=== PATIENT | male | born 1940 | race Caucasian/White ===

== ENCOUNTER 2017-09-27 23:36 | Inpatient (IN) | payer MEDICARE, MEDICAID ==
[~2017-09-27] VITALS: Ht 165.1 cm; Wt 86.4 kg
[~2017-09-27 23:36] MED LIST: ALBU8HFA PO; ASPI-1264 PO; ATOR10TA PO; FAMO20TA8 PO; LISI-222 PO; MAGN400C PO; MELO-102 PO; MONT10TA21 PO; NITR0.4T51 SL; OMEG1CAP PO
[2017-09-27] MEDS ORDERED: normal saline 1000ML IV soln IVB ONE (23:55)
[2017-09-28 00:31] LABS: CLARITY,URINE Clear (Clear); COLOR,URINE Yellow (Yellow); GLUCOSE, URINE Negative (Neg); KETONES,URINE Negative (Neg); LEUKOCYTE ESTERASE ,URINE Moderate (Neg); NITRITES, URINE Negative (Neg); OCCULT BLOOD,URINE Trace (Neg); PH,URINE 6.5 (4.8-8.0); PROTEIN,URINE Negative (Neg)
[2017-09-28 00:32] LABS: UA COLLECTION TYPE STRAIGHT CATH
[2017-09-28 00:35] LABS: BASOPHILS % (AUTO) 0.6 % (0-1); EOSINOPHILS % (AUTO) 0.3 % (0-6); HEMATOCRIT 42.2 % (42.0-52.0); LYMPHOCYTES # (AUTO) 1.3 X10'3 (1.1-4.8); LYMPHOCYTES % (AUTO) 16.6 % (21-51); MEAN CORPUSCULAR HEMOGLOBIN 30.1 PG (27.0-31.0); MEAN CORPUSCULAR HGB CONC 33.2 % (33.0-36.5); MEAN CORPUSCULAR VOLUME 90.7 FL (78-98); MEAN PLATELET VOLUME 8.9 FL (7.4-10.4); MONOCYTES # (AUTO) 0.5 X10'3 (0-0.9); MONOCYTES % (AUTO) 6.2 % (2-12); NEUTROPHILS # (AUTO) 5.9 X10'3 (1.8-7.7); NEUTROPHILS % (AUTO) 76.3 % (42-75); PLATELET COUNT 214 X10'3 (140-440); RED BLOOD COUNT 4.65 X10'6 (4.70-6.10); RED CELL DISTRIBUTION WIDTH 15.1 % (11.5-14.5); WHITE BLOOD COUNT 7.8 X10'3 (4.5-11.0)
[2017-09-28 00:40] LABS: BACTERIA,URINE 3+ /HPF (Neg); MUCUS STRANDS NONE SEEN /LPF (Neg); RBC,URINE 0-2 /HPF (0-2); SQUAMOUS EPITHELIAL CELL,UR NONE SEEN /LPF (FEW); WBC,URINE 30-50 /HPF (0-4)
[2017-09-28 00:48] LABS: ALANINE AMINOTRANSFERASE 25 U/L (12-78); ALBUMIN 3.3 G/DL (3.4-5.0); ALBUMIN/GLOBULIN RATIO 0.8 (1.1-1.5); ALKALINE PHOSPHATASE 85 IU/L (46-116); ANION GAP 11 (8-16); ASPARTATE AMINO TRANSFERASE 23 U/L (10-37); BILIRUBIN,TOTAL 0.3 MG/DL (0.1-1.0); BLOOD UREA NITROGEN 25 MG/DL (7-18); BUN/CREATININE RATIO 21.2 (5.4-32.0); CALCIUM 9.1 MG/DL (8.5-10.1); CHLORIDE 104 MMOL/L (99-107); CREATININE 1.18 MG/DL (0.60-1.10); GLUCOSE 88 MG/DL (70-104); POTASSIUM 4.2 MMOL/L (3.5-5.1); SODIUM 142 MMOL/L (135-145); TOTAL CARBON DIOXIDE 27.5 MMOL/L (24-32); TOTAL PROTEIN 7.7 G/DL (6.4-8.2); eGFR 60 ML/MIN
[2017-09-28] MEDS ORDERED: CefTRIAXone 2gm/NS 100ml IVPB 100 ML IV ONE (01:00)
[2017-09-28] MEDS ORDERED: CEPH500C5 PO (01:02)
[2017-09-28] MEDS ORDERED: FLO0.4C PO (02:05)
[2017-09-28] MEDS ORDERED: diphenhydrAMINE 25mg capsule PO PRN (02:15)
[2017-09-28] MEDS ORDERED: ondansetron/PF 4mg/2ml inj IV PRN (02:15)
[2017-09-28] MEDS ORDERED: acetaminophen 325mg tablet PO PRN (02:15)
[2017-09-28] MEDS ORDERED: acetaminophen 650mg rectal suppository RC PRN (02:15)
[2017-09-28] MEDS ORDERED: bisacodyl 10mg suppository rectal RC PRN (02:15)
[2017-09-28] MEDS ORDERED: magnesium hydroxide 30ml (MOM) UD suspension PO PRN (02:15)
[2017-09-28] MEDS ORDERED: diphenhydrAMINE 50 mg/ml inj IV PRN (02:15)
[2017-09-28] MEDS ORDERED: HYDROmorphone 1 mg/ml syringe IV PRN ×2 (02:15)
[2017-09-28] MEDS ORDERED: mag hydrox/Alum hydrox/simeth 30ml oral suspension PO PRN (02:15)
[2017-09-28] MEDS ORDERED: HYDROcodone/acetaminophen 5mg/325mg tablet PO PRN (02:15)
[2017-09-28] MEDS ORDERED: HYDROcodone/acetaminophen 10/325mg tab PO PRN (02:15)
[2017-09-28] MEDS ORDERED: metoclopramide 5 mg/ml inj IV PRN (02:15)
[2017-09-28 02:53] LABS: PARTIAL THROMBOPLASTIN TIME 23 SECONDS (22-32); PROTHROMBIN TIME 10.5 SECONDS (9.0-12.0)
[2017-09-28] MEDS: normal saline 1000ml 1,000 ML IV SCH ×3 (02:55→22:11)
[2017-09-28] MEDS ORDERED: magnesium 2GM in 50ml NS 50 ML IV PRN (03:05)
[2017-09-28] MEDS ORDERED: magnesium 4gm in 100ml NS 100 ML IV PRN (03:05)
[2017-09-28] MEDS ORDERED: magnesium Cl slow-release 64mg tablet PO PRN (03:05)
[2017-09-28 06:44] LABS: PHOSPHORUS 3.6 MG/DL (2.3-4.5)
[2017-09-28] MEDS ORDERED: aspirin 81mg tab.chew PO SCH (08:30)
[2017-09-28] MEDS: aspirin 325mg tablet PO SCH (08:36)
[2017-09-28] MEDS: atorvastatin 20mg tablet PO SCH (08:36)
[2017-09-28] MEDS: docusate sod 100mg capsule PO SCH ×2 (08:36→20:54)
[2017-09-28] MEDS: tamsulosin 0.4mg capsule PO SCH (08:36)
[2017-09-28] MEDS: heparin, porcine 5000 units/ml vial SQ SCH ×2 (08:37→20:48)
[2017-09-28] MEDS: cefTRIAXone 1g/NS 100ml IVPB 100 ML IV SCH ×2 (08:37→20:48)
[2017-09-28 10:00] VITALS: BP 144/51
[2017-09-28 16:22] LABS: CHOL/HDL RATIO 2.8 (0.00-4.99); CHOLESTEROL 133 MG/DL (0-200); HDL CHOLESTEROL 47 MG/DL (35-60); LDL CHOLESTEROL 75 MG/DL (50-100); TRIGLYCERIDES 127 MG/DL (20-135)
[2017-09-28] MEDS: lactobacillus rhamnosus 10,000 MMU CELLS/CAPSULE PO SCH (17:48)
[2017-09-28 19:00] VITALS: BP 105/67
[2017-09-28] MEDS ORDERED: temazepam 15mg capsule PO PRN (21:00)
[2017-09-28 22:00] VITALS: BP 142/72
[2017-09-29 00:32] VITALS: BP 118/71
[2017-09-29] MEDS ORDERED: atropine 1 MG/1 ML vial IV PRN (00:50)
[2017-09-29 04:00] VITALS: BP 123/61
[2017-09-29 06:00] VITALS: BP 145/65
[2017-09-29 07:05] LABS: BASOPHILS % (AUTO) 0.5 % (0-1); EOSINOPHILS # (AUTO) 0.1 X10'3 (0-0.9); EOSINOPHILS % (AUTO) 0.7 % (0-6); HEMATOCRIT 39.1 % (42.0-52.0); LYMPHOCYTES # (AUTO) 1.7 X10'3 (1.1-4.8); LYMPHOCYTES % (AUTO) 23.9 % (21-51); MEAN CORPUSCULAR HEMOGLOBIN 30.3 PG (27.0-31.0); MEAN CORPUSCULAR HGB CONC 33.4 % (33.0-36.5); MEAN CORPUSCULAR VOLUME 90.7 FL (78-98); MONOCYTES # (AUTO) 0.6 X10'3 (0-0.9); MONOCYTES % (AUTO) 8.1 % (2-12); NEUTROPHILS # (AUTO) 4.9 X10'3 (1.8-7.7); NEUTROPHILS % (AUTO) 66.8 % (42-75); PLATELET COUNT 195 X10'3 (140-440); RED BLOOD COUNT 4.31 X10'6 (4.70-6.10); RED CELL DISTRIBUTION WIDTH 15.1 % (11.5-14.5); WHITE BLOOD COUNT 7.3 X10'3 (4.5-11.0)
[2017-09-29 07:36] LABS: ALANINE AMINOTRANSFERASE 19 U/L (12-78); ALBUMIN 2.8 G/DL (3.4-5.0); ALBUMIN/GLOBULIN RATIO 0.7 (1.1-1.5); ALKALINE PHOSPHATASE 63 IU/L (46-116); ANION GAP 9 (8-16); ASPARTATE AMINO TRANSFERASE 17 U/L (10-37); BILIRUBIN,TOTAL 0.5 MG/DL (0.1-1.0); BLOOD UREA NITROGEN 18 MG/DL (7-18); CALCIUM 8.6 MG/DL (8.5-10.1); CHLORIDE 107 MMOL/L (99-107); CREATININE 1.06 MG/DL (0.60-1.10); GLUCOSE 86 MG/DL (70-104); MAGNESIUM 1.5 MG/DL (1.5-2.4); POTASSIUM 3.8 MMOL/L (3.5-5.1); SODIUM 142 MMOL/L (135-145); TOTAL CARBON DIOXIDE 25.8 MMOL/L (24-32); TOTAL PROTEIN 6.6 G/DL (6.4-8.2); eGFR 68 ML/MIN
[2017-09-29] MEDS: cefTRIAXone 1g/NS 100ml IVPB 100 ML IV SCH ×2 (09:37→21:34)
[2017-09-29] MEDS: aspirin 325mg tablet PO SCH (09:37)
[2017-09-29] MEDS: lactobacillus rhamnosus 10,000 MMU CELLS/CAPSULE PO SCH ×2 (09:37→19:47)
[2017-09-29] MEDS: tamsulosin 0.4mg capsule PO SCH (09:38)
[2017-09-29] MEDS: atorvastatin 20mg tablet PO SCH (09:38)
[2017-09-29] MEDS: docusate sod 100mg capsule PO SCH ×2 (09:38→19:48)
[2017-09-29] MEDS: heparin, porcine 5000 units/ml vial SQ SCH ×2 (09:44→19:48)
[2017-09-29] MEDS: normal saline 1000ml 1,000 ML IV SCH ×2 (09:45→19:48)
[2017-09-29 10:00] VITALS: BP 119/62
[2017-09-29 20:00] VITALS: BP 114/64
[2017-09-29] MEDS ORDERED: CefTRIAXone 1 gm/50ml D5W ADV 50 ML IV ONE (21:26)
[2017-09-30] VITALS: BP 122/71
[2017-09-30 04:00] VITALS: BP 109/68
[2017-09-30 06:00] VITALS: BP 133/66
[2017-09-30 06:10] LABS: BASOPHILS # (AUTO) 0.1 X10'3 (0-0.2); BASOPHILS % (AUTO) 0.7 % (0-1); EOSINOPHILS # (AUTO) 0.1 X10'3 (0-0.9); EOSINOPHILS % (AUTO) 1.1 % (0-6); HEMATOCRIT 40.1 % (42.0-52.0); HEMOGLOBIN 13.5 g/dl (14.0-17.9); LYMPHOCYTES # (AUTO) 1.4 X10'3 (1.1-4.8); MEAN CORPUSCULAR HEMOGLOBIN 30.4 PG (27.0-31.0); MEAN CORPUSCULAR HGB CONC 33.5 % (33.0-36.5); MEAN CORPUSCULAR VOLUME 90.6 FL (78-98); MEAN PLATELET VOLUME 8.7 FL (7.4-10.4); MONOCYTES # (AUTO) 0.8 X10'3 (0-0.9); MONOCYTES % (AUTO) 9.3 % (2-12); NEUTROPHILS # (AUTO) 6.7 X10'3 (1.8-7.7); NEUTROPHILS % (AUTO) 73.9 % (42-75); PLATELET COUNT 196 X10'3 (140-440); RED BLOOD COUNT 4.43 X10'6 (4.70-6.10); RED CELL DISTRIBUTION WIDTH 14.7 % (11.5-14.5); WHITE BLOOD COUNT 9.1 X10'3 (4.5-11.0)
[2017-09-30 06:41] LABS: ALANINE AMINOTRANSFERASE 18 U/L (12-78); ALBUMIN 2.8 G/DL (3.4-5.0); ALBUMIN/GLOBULIN RATIO 0.7 (1.1-1.5); ALKALINE PHOSPHATASE 61 IU/L (46-116); ANION GAP 8 (8-16); ASPARTATE AMINO TRANSFERASE 15 U/L (10-37); BILIRUBIN,TOTAL 0.7 MG/DL (0.1-1.0); BLOOD UREA NITROGEN 16 MG/DL (7-18); BUN/CREATININE RATIO 17.8 (5.4-32.0); CALCIUM 9.1 MG/DL (8.5-10.1); CHLORIDE 105 MMOL/L (99-107); GLUCOSE 114 MG/DL (70-104); MAGNESIUM 1.2 MG/DL (1.5-2.4); SODIUM 139 MMOL/L (135-145); TOTAL CARBON DIOXIDE 25.9 MMOL/L (24-32); eGFR 82 ML/MIN
[2017-09-30] MEDS ORDERED: CefTRIAXone 1 gm/50ml D5W ADV 50 ML IV ONE (08:47)
[2017-09-30] MEDS: aspirin 325mg tablet PO SCH (08:51)
[2017-09-30] MEDS: tamsulosin 0.4mg capsule PO SCH (08:51)
[2017-09-30] MEDS: docusate sod 100mg capsule PO SCH ×2 (08:51→20:44)
[2017-09-30] MEDS: atorvastatin 20mg tablet PO SCH (08:51)
[2017-09-30] MEDS: lactobacillus rhamnosus 10,000 MMU CELLS/CAPSULE PO SCH ×2 (08:51→20:44)
[2017-09-30] MEDS: cefTRIAXone 1g/NS 100ml IVPB 100 ML IV SCH ×2 (08:52→20:44)
[2017-09-30] MEDS: normal saline 1000ml 1,000 ML IV SCH ×3 (08:53→22:33)
[2017-09-30] MEDS: heparin, porcine 5000 units/ml vial SQ SCH ×2 (08:57→20:45)
[2017-09-30 10:00] VITALS: BP 116/62
[2017-09-30 19:00] VITALS: BP 118/61
[2017-09-30 23:00] VITALS: BP 137/77
[2017-10-01 06:00] VITALS: BP 119/62
[2017-10-01 06:20] LABS: BASOPHILS % (AUTO) 0.3 % (0-1); EOSINOPHILS # (AUTO) 0.1 X10'3 (0-0.9); EOSINOPHILS % (AUTO) 1.3 % (0-6); HEMATOCRIT 37.9 % (42.0-52.0); HEMOGLOBIN 12.7 g/dl (14.0-17.9); LYMPHOCYTES # (AUTO) 1.6 X10'3 (1.1-4.8); LYMPHOCYTES % (AUTO) 19.7 % (21-51); MEAN CORPUSCULAR HEMOGLOBIN 30.4 PG (27.0-31.0); MEAN CORPUSCULAR HGB CONC 33.5 % (33.0-36.5); MEAN CORPUSCULAR VOLUME 90.9 FL (78-98); MEAN PLATELET VOLUME 9.1 FL (7.4-10.4); MONOCYTES # (AUTO) 0.9 X10'3 (0-0.9); MONOCYTES % (AUTO) 11.3 % (2-12); NEUTROPHILS # (AUTO) 5.7 X10'3 (1.8-7.7); NEUTROPHILS % (AUTO) 67.4 % (42-75); PLATELET COUNT 193 X10'3 (140-440); RED BLOOD COUNT 4.16 X10'6 (4.70-6.10); RED CELL DISTRIBUTION WIDTH 14.6 % (11.5-14.5); WHITE BLOOD COUNT 8.4 X10'3 (4.5-11.0)
[2017-10-01 07:12] LABS: ALANINE AMINOTRANSFERASE 15 U/L (12-78); ALBUMIN 2.5 G/DL (3.4-5.0); ALBUMIN/GLOBULIN RATIO 0.6 (1.1-1.5); ALKALINE PHOSPHATASE 59 IU/L (46-116); ANION GAP 7 (8-16); ASPARTATE AMINO TRANSFERASE 12 U/L (10-37); BILIRUBIN,TOTAL 0.6 MG/DL (0.1-1.0); BLOOD UREA NITROGEN 16 MG/DL (7-18); CALCIUM 8.6 MG/DL (8.5-10.1); CHLORIDE 104 MMOL/L (99-107); CREATININE 0.89 MG/DL (0.60-1.10); GLUCOSE 113 MG/DL (70-104); MAGNESIUM 1.2 MG/DL (1.5-2.4); POTASSIUM 3.8 MMOL/L (3.5-5.1); SODIUM 137 MMOL/L (135-145); TOTAL CARBON DIOXIDE 26.3 MMOL/L (24-32); TOTAL PROTEIN 6.6 G/DL (6.4-8.2); eGFR 83 ML/MIN
[2017-10-01] MEDS ORDERED: magnesium 4gm in 100ml NS 100 ML IV PRN (08:20)
[2017-10-01] MEDS ORDERED: potassium Cl 20 mEq SR tablet PO PRN ×2 (08:20)
[2017-10-01] MEDS ORDERED: magnesium 2GM in 50ml NS 50 ML IV PRN (08:20)
[2017-10-01] MEDS ORDERED: potassium Cl 40MEQ/NS 500ml 500 ML IV PRN ×2 (08:20)
[2017-10-01] MEDS ORDERED: CefTRIAXone 1 gm/50ml D5W ADV 50 ML IV SCH (08:45)
[2017-10-01] MEDS: aspirin 325mg tablet PO SCH (08:47)
[2017-10-01] MEDS: atorvastatin 20mg tablet PO SCH (08:47)
[2017-10-01] MEDS: magnesium Cl slow-release 64mg tablet PO PRN ×2 (08:47→19:17)
[2017-10-01] MEDS: tamsulosin 0.4mg capsule PO SCH (08:47)
[2017-10-01] MEDS: docusate sod 100mg capsule PO SCH ×2 (08:47→19:17)
[2017-10-01] MEDS: lactobacillus rhamnosus 10,000 MMU CELLS/CAPSULE PO SCH (08:49)
[2017-10-01] MEDS: heparin, porcine 5000 units/ml vial SQ SCH ×2 (08:50→19:16)
[2017-10-01] MEDS: CefTRIAXone 1 gm/50ml D5W ADV 50 ML IV SCH ×2 (09:31→20:00)
[2017-10-01 10:00] VITALS: BP 105/58
[2017-10-01 18:00] VITALS: BP 121/70
[2017-10-01] MEDS ORDERED: CEFTRIAXONE IV ONE (19:11)
[2017-10-01] MEDS ORDERED: [UNRECOGNIZED DRUG - OTHER] IV ONE (19:11)
[2017-10-01] MEDS: normal saline 1000ml 1,000 ML IV SCH ×2 (19:15→20:11)
[2017-10-01 22:00] VITALS: BP 131/63
[2017-10-02] MEDS: normal saline 1000ml 1,000 ML IV SCH (05:40)
[2017-10-02 06:00] VITALS: BP 134/73
[2017-10-02 06:06] LABS: ALANINE AMINOTRANSFERASE 40 U/L (12-78); ALBUMIN 2.6 G/DL (3.4-5.0); ALBUMIN/GLOBULIN RATIO 0.6 (1.1-1.5); ALKALINE PHOSPHATASE 72 IU/L (46-116); ANION GAP 8 (8-16); ASPARTATE AMINO TRANSFERASE 31 U/L (10-37); BILIRUBIN,TOTAL 0.6 MG/DL (0.1-1.0); BLOOD UREA NITROGEN 14 MG/DL (7-18); BUN/CREATININE RATIO 15.7 (5.4-32.0); CALCIUM 8.6 MG/DL (8.5-10.1); CHLORIDE 101 MMOL/L (99-107); CREATININE 0.89 MG/DL (0.60-1.10); GLUCOSE 120 MG/DL (70-104); MAGNESIUM 1.1 MG/DL (1.5-2.4); SODIUM 136 MMOL/L (135-145); TOTAL CARBON DIOXIDE 26.8 MMOL/L (24-32); TOTAL PROTEIN 7.2 G/DL (6.4-8.2); eGFR 83 ML/MIN
[2017-10-02 06:07] LABS: BASOPHILS % (AUTO) 0.2 % (0-1); EOSINOPHILS # (AUTO) 0.1 X10'3 (0-0.9); EOSINOPHILS % (AUTO) 0.7 % (0-6); HEMATOCRIT 40.4 % (42.0-52.0); HEMOGLOBIN 13.4 g/dl (14.0-17.9); LYMPHOCYTES # (AUTO) 1.1 X10'3 (1.1-4.8); LYMPHOCYTES % (AUTO) 12.6 % (21-51); MEAN CORPUSCULAR HEMOGLOBIN 30.3 PG (27.0-31.0); MEAN CORPUSCULAR HGB CONC 33.1 % (33.0-36.5); MEAN CORPUSCULAR VOLUME 91.5 FL (78-98); MEAN PLATELET VOLUME 9.7 FL (7.4-10.4); MONOCYTES # (AUTO) 0.9 X10'3 (0-0.9); MONOCYTES % (AUTO) 10.2 % (2-12); NEUTROPHILS # (AUTO) 6.8 X10'3 (1.8-7.7); NEUTROPHILS % (AUTO) 76.3 % (42-75); PLATELET COUNT 192 X10'3 (140-440); RED BLOOD COUNT 4.42 X10'6 (4.70-6.10); RED CELL DISTRIBUTION WIDTH 14.4 % (11.5-14.5); WHITE BLOOD COUNT 8.9 X10'3 (4.5-11.0)
[2017-10-02] MEDS ORDERED: cefTRIAXone 1g/NS 100ml IVPB 100 ML IV SCH ×2 (08:00→08:42)
[2017-10-02] MEDS: docusate sod 100mg capsule PO SCH ×2 (08:14→20:15)
[2017-10-02] MEDS: aspirin 325mg tablet PO SCH (08:14)
[2017-10-02] MEDS: atorvastatin 20mg tablet PO SCH (08:14)
[2017-10-02] MEDS: tamsulosin 0.4mg capsule PO SCH (08:14)
[2017-10-02] MEDS: LACTOBACILLUS RHAMNOSUS GG 15 billion unit sprinkle caps PO SCH (08:14)
[2017-10-02] MEDS: heparin, porcine 5000 units/ml vial SQ SCH ×2 (08:15→20:15)
[2017-10-02] MEDS: magnesium Cl slow-release 64mg tablet PO PRN (08:53)
[2017-10-02 10:00] VITALS: BP 128/60
[2017-10-02 18:00] VITALS: BP 120/63
[2017-10-02] MEDS: vancomycin/NS 1 GM ADD-VANTAGE 250 ML IV SCH ×2 (18:05→20:15)
[2017-10-02] MEDS: acetaminophen 325mg tablet PO PRN (21:20)
[2017-10-02 22:00] VITALS: BP 117/72
[2017-10-02 23:52] LABS: CLARITY,URINE Clear (Clear); COLOR,URINE Yellow (Yellow); GLUCOSE, URINE Negative (Neg); KETONES,URINE Negative (Neg); LEUKOCYTE ESTERASE ,URINE Small (Neg); NITRITES, URINE Negative (Neg); OCCULT BLOOD,URINE Negative (Neg); PH,URINE 5.5 (4.8-8.0); PROTEIN,URINE Negative (Neg); UA COLLECTION TYPE CLN CATCH MIDSTREAM; UROBILINOGEN,URINE 0.2 E.U/dL (0.2-1.0)
[2017-10-03 00:05] LABS: BACTERIA,URINE 1+ /HPF (Neg); MUCUS STRANDS NONE SEEN /LPF (Neg); RBC,URINE NONE SEEN /HPF (0-2); SQUAMOUS EPITHELIAL CELL,UR FEW /LPF (FEW)
[2017-10-03] MEDS: levoFLOXACIN-Levaquin 500mg/D5 100 ML IV SCH ×2 (00:37→08:36)
[2017-10-03] MEDS: vancomycin inj 1,250 MG in normal saline 250ml IV soln 250 ML IV SCH ×2 (04:27→16:56)
[2017-10-03 06:00] VITALS: BP 136/68
[2017-10-03 06:20] LABS: BASOPHILS % (AUTO) 0.3 % (0-1); EOSINOPHILS # (AUTO) 0.1 X10'3 (0-0.9); EOSINOPHILS % (AUTO) 0.7 % (0-6); HEMATOCRIT 35.9 % (42.0-52.0); HEMOGLOBIN 12.1 g/dl (14.0-17.9); LYMPHOCYTES # (AUTO) 1.2 X10'3 (1.1-4.8); MEAN CORPUSCULAR HEMOGLOBIN 30.7 PG (27.0-31.0); MEAN CORPUSCULAR HGB CONC 33.8 % (33.0-36.5); MEAN CORPUSCULAR VOLUME 90.8 FL (78-98); MEAN PLATELET VOLUME 8.5 FL (7.4-10.4); MONOCYTES # (AUTO) 0.7 X10'3 (0-0.9); MONOCYTES % (AUTO) 9.7 % (2-12); NEUTROPHILS # (AUTO) 5.2 X10'3 (1.8-7.7); NEUTROPHILS % (AUTO) 72.3 % (42-75); PLATELET COUNT 204 X10'3 (140-440); RED BLOOD COUNT 3.96 X10'6 (4.70-6.10); RED CELL DISTRIBUTION WIDTH 14.3 % (11.5-14.5); WHITE BLOOD COUNT 7.2 X10'3 (4.5-11.0)
[2017-10-03 06:47] LABS: ALANINE AMINOTRANSFERASE 40 U/L (12-78); ALBUMIN 2.2 G/DL (3.4-5.0); ALBUMIN/GLOBULIN RATIO 0.5 (1.1-1.5); ALKALINE PHOSPHATASE 70 IU/L (46-116); ANION GAP 7 (8-16); ASPARTATE AMINO TRANSFERASE 26 U/L (10-37); BILIRUBIN,TOTAL 0.7 MG/DL (0.1-1.0); BLOOD UREA NITROGEN 18 MG/DL (7-18); BUN/CREATININE RATIO 19.6 (5.4-32.0); CALCIUM 8.6 MG/DL (8.5-10.1); CHLORIDE 107 MMOL/L (99-107); CREATININE 0.92 MG/DL (0.60-1.10); GLUCOSE 106 MG/DL (70-104); MAGNESIUM 1.2 MG/DL (1.5-2.4); POTASSIUM 3.9 MMOL/L (3.5-5.1); SODIUM 140 MMOL/L (135-145); TOTAL CARBON DIOXIDE 26.1 MMOL/L (24-32); TOTAL PROTEIN 6.6 G/DL (6.4-8.2); eGFR 80 ML/MIN
[2017-10-03] MEDS ORDERED: cefTRIAXone 1g/NS 100ml IVPB 100 ML IV SCH (08:00)
[2017-10-03] MEDS: tamsulosin 0.4mg capsule PO SCH (08:36)
[2017-10-03] MEDS: docusate sod 100mg capsule PO SCH ×2 (08:36→21:26)
[2017-10-03] MEDS: aspirin 325mg tablet PO SCH (08:36)
[2017-10-03] MEDS: LACTOBACILLUS RHAMNOSUS GG 15 billion unit sprinkle caps PO SCH (08:36)
[2017-10-03] MEDS: atorvastatin 20mg tablet PO SCH (08:36)
[2017-10-03] MEDS: heparin, porcine 5000 units/ml vial SQ SCH ×2 (08:37→21:26)
[2017-10-03 10:00] VITALS: BP 135/69
[2017-10-03 18:00] VITALS: BP 127/61
[2017-10-03 22:00] VITALS: BP 125/57
[2017-10-04] MEDS: acetaminophen 325mg tablet PO PRN (05:09)
[2017-10-04] MEDS: vancomycin inj 1,250 MG in normal saline 250ml IV soln 250 ML IV SCH (05:12)
[2017-10-04 06:00] VITALS: BP 131/67
[2017-10-04 06:56] LABS: MAGNESIUM 1.9 MG/DL (1.5-2.4); POTASSIUM 3.8 MMOL/L (3.5-5.1)
[2017-10-04] MEDS: levoFLOXACIN-Levaquin 500mg/D5 100 ML IV SCH (09:03)
[2017-10-04] MEDS: atorvastatin 20mg tablet PO SCH (09:04)
[2017-10-04] MEDS: aspirin 325mg tablet PO SCH (09:04)
[2017-10-04] MEDS: LACTOBACILLUS RHAMNOSUS GG 15 billion unit sprinkle caps PO SCH (09:04)
[2017-10-04] MEDS: tamsulosin 0.4mg capsule PO SCH (09:04)
[2017-10-04] MEDS: heparin, porcine 5000 units/ml vial SQ SCH ×2 (09:04→21:19)
[2017-10-04] MEDS: docusate sod 100mg capsule PO SCH ×2 (09:05→20:00)
[2017-10-04 10:00] VITALS: BP 120/54
[2017-10-04] MEDS ORDERED: VANCOMYCIN LEVEL IV NR (16:30)
[2017-10-04 18:00] VITALS: BP 120/59
[2017-10-04 22:00] VITALS: BP 121/57
[2017-10-05 06:25] LABS: ALBUMIN 2.2 G/DL (3.4-5.0); ANION GAP 9 (8-16); BLOOD UREA NITROGEN 24 MG/DL (7-18); BUN/CREATININE RATIO 25.5 (5.4-32.0); CALCIUM 8.8 MG/DL (8.5-10.1); CHLORIDE 106 MMOL/L (99-107); CREATININE 0.94 MG/DL (0.60-1.10); GLUCOSE 100 MG/DL (70-104); MAGNESIUM 1.2 MG/DL (1.5-2.4); POTASSIUM 3.8 MMOL/L (3.5-5.1); SODIUM 142 MMOL/L (135-145); TOTAL CARBON DIOXIDE 26.6 MMOL/L (24-32); eGFR 78 ML/MIN
[2017-10-05 06:36] VITALS: BP 110/56
[2017-10-05] MEDS: docusate sod 100mg capsule PO SCH (07:31)
[2017-10-05] MEDS: aspirin 325mg tablet PO SCH (07:31)
[2017-10-05] MEDS: tamsulosin 0.4mg capsule PO SCH (07:31)
[2017-10-05] MEDS: LACTOBACILLUS RHAMNOSUS GG 15 billion unit sprinkle caps PO SCH (07:31)
[2017-10-05] MEDS: atorvastatin 20mg tablet PO SCH (07:31)
[2017-10-05] MEDS: heparin, porcine 5000 units/ml vial SQ SCH (07:33)
[2017-10-05] MEDS ORDERED: levoFLOXACIN 500mg tablet PO SCH (11:00)
[2017-10-05 11:42] VITALS: BP 136/71
[2017-10-05] MEDS ORDERED: LEVO500T89 PO (12:58)
== END 2017-10-05 15:55 | DRG 64 ==
LOC: ER 23:37 → ED HOLD 09-28 02:11 → ORTHO 4S 09-28 07:52
PROVIDERS: ADMIT Family Medicine; ATTEND Family Medicine
DX: I63.8 Other cerebral infarction (principal); G93.40 Encephalopathy, unspecified; E46 Unspecified protein-calorie malnutrition; E11.51 Type 2 diabetes mellitus with diabetic peripheral angiopathy without gangrene; I50.20 Unspecified systolic (congestive) heart failure; N39.0 Urinary tract infection, site not specified; I11.0 Hypertensive heart disease with heart failure; E83.42 Hypomagnesemia; R32 Unspecified urinary incontinence; B96.5 Pseudomonas (aeruginosa) (mallei) (pseudomallei) as the cause of diseases classified elsewhere; F03.90 Unspecified dementia, unspecified severity, without behavioral disturbance, psychotic disturbance, mood disturbance, and anxiety; R00.1 Bradycardia, unspecified; J44.9 Chronic obstructive pulmonary disease, unspecified; I25.10 Atherosclerotic heart disease of native coronary artery without angina pectoris; D64.9 Anemia, unspecified; E78.00 Pure hypercholesterolemia, unspecified; E78.5 Hyperlipidemia, unspecified; F32.9 Major depressive disorder, single episode, unspecified; F17.210 Nicotine dependence, cigarettes, uncomplicated; I25.2 Old myocardial infarction; Z95.1 Presence of aortocoronary bypass graft; Z90.49 Acquired absence of other specified parts of digestive tract; Z79.899 Other long term (current) drug therapy; Z79.82 Long term (current) use of aspirin; Z68.31 Body mass index [BMI] 31.0-31.9, adult
CPT/HCPCS: 36415; 70450; 70544; 70547; 70551; 71046; 80048; 80053; 80061; 80202; 81001; 83735; 83880; 84100; 84132; 84443; 85025; 85610; 85730; 87070; 87077; 87088; 87186; 92616; 93005; 93306; 93880; 96365; 97116; 97161; 97530; 99285; A4353; J0696; J1644; J1956; J3370; J3475; J7030

== ENCOUNTER 2019-05-16 13:02 | Emergency (ER) | payer MEDICARE, MEDICAID ==
[~2019-05-16] VITALS: Ht 170.2 cm; Wt 86.4 kg
[~2019-05-16 13:02] MED LIST changes: -ALBU8HFA PO; -ATOR10TA PO; -FAMO20TA8 PO; +FLO0.4C PO; +LEVO500T89 PO; -LISI-222 PO; -MELO-102 PO; -MONT10TA21 PO; -NITR0.4T51 SL; -OMEG1CAP PO
[2019-05-16 14:33] LABS: CLARITY,URINE CLEAR (Clear); COLOR,URINE YELLOW (Yellow); GLUCOSE, URINE 100 mg/dl (Neg); KETONES,URINE 15 mg/dl (Neg); LEUKOCYTE ESTERASE ,URINE NEGATIVE (Neg); NITRITES, URINE NEGATIVE (Neg); OCCULT BLOOD,URINE NEGATIVE (Neg); PH,URINE 5.5 (4.8-8.0); PROTEIN,URINE 30 mg/dl (Neg)
[2019-05-16 14:49] LABS: UA COLLECTION TYPE CLN CATCH MIDSTREAM
[2019-05-16 14:50] LABS: BACTERIA,URINE 1+ /HPF (Neg); MUCUS STRANDS FEW /LPF (Neg); RBC,URINE NONE SEEN /HPF (0-2); SQUAMOUS EPITHELIAL CELL,UR FEW /LPF (FEW)
[2019-05-16 14:51] LABS: WBC CLUMPS,URINE FEW /HPF (NEGATIVE)
[2019-05-16 15:00] VITALS: BP 152/77
[2019-05-16 15:03] LABS: BASOPHILS % (AUTO) 0.4 % (0-1); EOSINOPHILS % (AUTO) 0.3 % (0-6); HEMATOCRIT 47.6 % (42.0-52.0); HEMOGLOBIN 16.3 g/dl (14.0-17.9); LYMPHOCYTES # (AUTO) 1.2 X10'3 (1.1-4.8); LYMPHOCYTES % (AUTO) 17.1 % (21-51); MEAN CORPUSCULAR HEMOGLOBIN 30.6 PG (27.0-31.0); MEAN CORPUSCULAR HGB CONC 34.1 g/dL (33.0-36.5); MEAN CORPUSCULAR VOLUME 89.7 FL (78-98); MEAN PLATELET VOLUME 8.3 FL (7.4-10.4); MONOCYTES # (AUTO) 0.9 X10'3 (0-0.9); MONOCYTES % (AUTO) 12.3 % (2-12); NEUTROPHILS % (AUTO) 69.9 % (42-75); PLATELET COUNT 211 X10'3 (140-440); RED BLOOD COUNT 5.31 X10'6 (4.70-6.10); RED CELL DISTRIBUTION WIDTH 14.5 % (11.5-14.5); WHITE BLOOD COUNT 7.1 X10'3 (4.5-11.0)
[2019-05-16 15:14] LABS: ALANINE AMINOTRANSFERASE 52 U/L (12-78); ALBUMIN 3.3 G/DL (3.4-5.0); ALBUMIN/GLOBULIN RATIO 0.7 (1.1-1.5); ALKALINE PHOSPHATASE 86 IU/L (46-116); ANION GAP 10 (8-16); ASPARTATE AMINO TRANSFERASE 39 U/L (10-37); BILIRUBIN,TOTAL 1.9 MG/DL (0.1-1.0); BLOOD UREA NITROGEN 31 MG/DL (7-18); BUN/CREATININE RATIO 21.8 (5.4-32.0); CALCIUM 8.7 MG/DL (8.5-10.1); CHLORIDE 98 MMOL/L (99-107); CREATININE 1.42 MG/DL (0.60-1.10); GLUCOSE 141 MG/DL (70-104); POTASSIUM 3.5 MMOL/L (3.5-5.1); SODIUM 136 MMOL/L (135-145); TOTAL CARBON DIOXIDE 28.2 MMOL/L (24-32); TOTAL PROTEIN 7.9 G/DL (6.4-8.2); eGFR 48 ML/MIN
[2019-05-16] MEDS ORDERED: LIDOcaine 5% patch TP ONE (15:45)
[2019-05-16] MEDS ORDERED: cephalexin 250mg capsule PO ONE (15:45)
[2019-05-16] MEDS ORDERED: traMADol 50MG tablet PO ONE (15:45)
[2019-05-16] MEDS ORDERED: CEPH-572 PO (15:46)
[2019-05-16] MEDS ORDERED: TRAM50TA2 PO (15:46)
== END 2019-05-16 16:00 | disposition home or self-care (01) ==
LOC: ER 13:02
DX: N39.0 Urinary tract infection, site not specified (principal); M54.2 Cervicalgia; F03.90 Unspecified dementia, unspecified severity, without behavioral disturbance, psychotic disturbance, mood disturbance, and anxiety; I11.0 Hypertensive heart disease with heart failure; I50.9 Heart failure, unspecified; E78.00 Pure hypercholesterolemia, unspecified; E11.9 Type 2 diabetes mellitus without complications; F32.9 Major depressive disorder, single episode, unspecified; Z90.49 Acquired absence of other specified parts of digestive tract; Z95.1 Presence of aortocoronary bypass graft; Z79.82 Long term (current) use of aspirin; Z79.899 Other long term (current) drug therapy
CPT/HCPCS: 36415; 80053; 81001; 85025; 87088; 99284

== ENCOUNTER 2019-11-14 10:10 | Emergency (ER) | payer MEDICARE, MEDICAID ==
[~2019-11-14] VITALS: Ht 175.3 cm; Wt 80.0 kg
[2019-11-14 10:14] VITALS: BP 148/71
== END 2019-11-14 10:46 | disposition home or self-care (01) ==
LOC: ER 10:11
DX: M79.605 Pain in left leg (principal); E78.00 Pure hypercholesterolemia, unspecified; E11.9 Type 2 diabetes mellitus without complications; I11.0 Hypertensive heart disease with heart failure; I50.9 Heart failure, unspecified; Z90.49 Acquired absence of other specified parts of digestive tract; Z95.1 Presence of aortocoronary bypass graft; Z79.82 Long term (current) use of aspirin; Z79.2 Long term (current) use of antibiotics; W18.30XA Fall on same level, unspecified, initial encounter; Y93.89 Activity, other specified; Y92.89 Other specified places as the place of occurrence of the external cause; Y99.9 Unspecified external cause status
CPT/HCPCS: 73590; 73610; 99284

== ENCOUNTER 2020-02-28 14:39 | Emergency (ER) | payer MEDICARE, MEDICAID ==
[~2020-02-28] VITALS: Ht 170.2 cm; Wt 77.0 kg
[2020-02-28] MEDS ORDERED: acetaminophen 325mg tablet PO ONE (15:20)
[2020-02-28 15:31] VITALS: BP 128/64
== END 2020-02-28 16:21 | disposition home or self-care (01) ==
LOC: ER 14:40
DX: M25.531 Pain in right wrist (principal); F03.90 Unspecified dementia, unspecified severity, without behavioral disturbance, psychotic disturbance, mood disturbance, and anxiety; I50.9 Heart failure, unspecified; E78.00 Pure hypercholesterolemia, unspecified; I11.0 Hypertensive heart disease with heart failure; E11.9 Type 2 diabetes mellitus without complications; F32.9 Major depressive disorder, single episode, unspecified; Z90.49 Acquired absence of other specified parts of digestive tract; Z95.1 Presence of aortocoronary bypass graft; Z79.82 Long term (current) use of aspirin; Z79.899 Other long term (current) drug therapy
CPT/HCPCS: 29125; 73110; 99284

== ENCOUNTER 2020-11-18 14:35 | Emergency (ER) | payer MEDICARE, MEDICAID ==
[~2020-11-18] VITALS: Ht 170.2 cm; Wt 80.6 kg
[2020-11-18] MEDS ORDERED: normal saline 1000ML IV soln IV ONE (15:05)
[2020-11-18 15:55] LABS: BASOPHILS % (AUTO) 0.6 % (0-1); EOSINOPHILS # (AUTO) 0.1 X10'3 (0-0.9); EOSINOPHILS % (AUTO) 2.7 % (0-6); HEMOGLOBIN 15.1 g/dl (14.0-17.9); LYMPHOCYTES # (AUTO) 1.3 X10'3 (1.1-4.8); LYMPHOCYTES % (AUTO) 27.2 % (21-51); MEAN CORPUSCULAR HEMOGLOBIN 30.3 PG (27.0-31.0); MEAN CORPUSCULAR HGB CONC 33.5 g/dL (33.0-36.5); MEAN CORPUSCULAR VOLUME 90.4 FL (78-98); MEAN PLATELET VOLUME 8.9 FL (7.4-10.4); MONOCYTES # (AUTO) 0.4 X10'3 (0-0.9); MONOCYTES % (AUTO) 7.8 % (2-12); NEUTROPHILS # (AUTO) 2.9 X10'3 (1.8-7.7); NEUTROPHILS % (AUTO) 61.7 % (42-75); PLATELET COUNT 233 X10'3 (140-440); RED BLOOD COUNT 4.98 X10'6 (4.70-6.10); RED CELL DISTRIBUTION WIDTH 14.5 % (11.5-14.5); WHITE BLOOD COUNT 4.7 X10'3 (4.5-11.0)
[2020-11-18 16:22] LABS: ALANINE AMINOTRANSFERASE 28 U/L (12-78); ALBUMIN 3.6 G/DL (3.4-5.0); ALBUMIN/GLOBULIN RATIO 0.9 (1.1-1.5); ALKALINE PHOSPHATASE 71 IU/L (46-116); ANION GAP 9 (8-16); ASPARTATE AMINO TRANSFERASE 25 U/L (10-37); BILIRUBIN,TOTAL 0.7 MG/DL (0.1-1.0); BLOOD UREA NITROGEN 24 MG/DL (7-18); BUN/CREATININE RATIO 17.8 (5.4-32.0); CALCIUM 8.9 MG/DL (8.5-10.1); CHLORIDE 104 MMOL/L (99-107); CREATININE 1.35 MG/DL (0.60-1.10); GLUCOSE 110 MG/DL (70-104); POTASSIUM 4.4 MMOL/L (3.5-5.1); SODIUM 142 MMOL/L (135-145); TOTAL PROTEIN 7.6 G/DL (6.4-8.2); eGFR 51 ML/MIN
[2020-11-18] MEDS ORDERED: POLY17PO10 PO (16:34)
[2020-11-18] MEDS ORDERED: lactulose 20gm/30ml cup PO ONE (16:35)
[2020-11-18 17:20] VITALS: BP 154/86
[2020-11-19 09:38] LABS: OCCULT BLOOD STOOL NEGATIVE (Neg)
== END 2020-11-18 17:21 | disposition home or self-care (01) ==
LOC: ER 14:35
DX: K59.00 Constipation, unspecified (principal); R10.32 Left lower quadrant pain; F03.90 Unspecified dementia, unspecified severity, without behavioral disturbance, psychotic disturbance, mood disturbance, and anxiety; I11.0 Hypertensive heart disease with heart failure; I50.9 Heart failure, unspecified; E78.00 Pure hypercholesterolemia, unspecified; E11.9 Type 2 diabetes mellitus without complications; Z87.440 Personal history of urinary (tract) infections; Z86.79 Personal history of other diseases of the circulatory system; Z90.49 Acquired absence of other specified parts of digestive tract; Z95.5 Presence of coronary angioplasty implant and graft; Z79.82 Long term (current) use of aspirin; Z79.2 Long term (current) use of antibiotics; Z79.899 Other long term (current) drug therapy
CPT/HCPCS: 36415; 71045; 74176; 80053; 82272; 84145; 85025; 85610; 86885; 86900; 86901; 93005; 99285; J7030

== ENCOUNTER 2021-01-03 16:40 | Emergency (ER) | payer MEDICARE, MEDICAID ==
[~2021-01-03] VITALS: Ht 170.2 cm; Wt 90.9 kg
[2021-01-03 18:27] VITALS: BP 160/81
--- NOTE | 2021-01-03 18:53 | NUR ---
he came out of T2 and said he was cold. So I placed a warmed blanket on him. Then he told me to tell the doctors to hurry up. I infomed him that the doctors were in fact busy but would be with him when they could. He than said "I'm just gonna call my brother and have him pick me up! I informed him that he could do what ever he would like. Then he told me to call his brother. I informed him that he could do that. There is a phone on the wall out here. He is calling his brother.
[2021-01-03] MEDS ORDERED: TETanus/Pertussis (Acell)/Diphther VAC/PF (Tdap-Adult) 0.5ml syringe IMVAC ONE (19:00)
[2021-01-03] MEDS ORDERED: bacitracin 15gm ointment TP ONE (19:00)
[2021-01-03] MEDS ORDERED: AMOX-422 PO (19:00)
--- NOTE | 2021-01-03 19:12 | NUR ---
I was able to keep him, ALENA Simms saw him quickly. I cleansed the wound with running soap and warm water and put abx cream and 4x4 and coban to his 2 hand wounds. Gave him his TDAP.
== END 2021-01-03 17:46 | disposition left against medical advice (07) ==
LOC: ER 16:41
DX: S61.412A Laceration without foreign body of left hand, initial encounter (principal); I11.0 Hypertensive heart disease with heart failure; I50.9 Heart failure, unspecified; E78.00 Pure hypercholesterolemia, unspecified; Z87.440 Personal history of urinary (tract) infections; E11.9 Type 2 diabetes mellitus without complications; F32.9 Major depressive disorder, single episode, unspecified; Z90.49 Acquired absence of other specified parts of digestive tract; Z98.890 Other specified postprocedural states; Z79.2 Long term (current) use of antibiotics; Z79.82 Long term (current) use of aspirin; Z79.899 Other long term (current) drug therapy; W54.0XXA Bitten by dog, initial encounter; Y93.89 Activity, other specified; Y92.89 Other specified places as the place of occurrence of the external cause; Y99.8 Other external cause status
CPT/HCPCS: 90471; 90715; 99283

== ENCOUNTER 2021-06-19 06:02 | Day surgery (SDC) | payer MEDICARE, MEDICAID ==
[2021-06-18 12:57] LABS: BASOPHILS # (AUTO) 0.1 X10'3 (0-0.2); EOSINOPHILS # (AUTO) 0.1 X10'3 (0-0.9); EOSINOPHILS % (AUTO) 1.9 % (0-6); HEMATOCRIT 43.2 % (42.0-52.0); HEMOGLOBIN 14.6 g/dl (14.0-17.9); LYMPHOCYTES # (AUTO) 1.3 X10'3 (1.1-4.8); LYMPHOCYTES % (AUTO) 25.5 % (21-51); MEAN CORPUSCULAR HEMOGLOBIN 30.8 PG (27.0-31.0); MEAN CORPUSCULAR HGB CONC 33.8 g/dL (33.0-36.5); MEAN CORPUSCULAR VOLUME 91.1 FL (78-98); MEAN PLATELET VOLUME 8.9 FL (7.4-10.4); MONOCYTES # (AUTO) 0.3 X10'3 (0-0.9); MONOCYTES % (AUTO) 6.5 % (2-12); NEUTROPHILS # (AUTO) 3.4 X10'3 (1.8-7.7); NEUTROPHILS % (AUTO) 65.1 % (42-75); PLATELET COUNT 219 X10'3 (140-440); RED BLOOD COUNT 4.75 X10'6 (4.70-6.10); RED CELL DISTRIBUTION WIDTH 14.9 % (11.5-14.5); WHITE BLOOD COUNT 5.3 X10'3 (4.5-11.0)
[2021-06-18 13:08] LABS: ALBUMIN 3.3 G/DL (3.4-5.0); ANION GAP 13 (8-16); BLOOD UREA NITROGEN 15 MG/DL (7-18); CALCIUM 8.1 MG/DL (8.5-10.1); CHLORIDE 107 MMOL/L (99-107); CREATININE 1.25 MG/DL (0.60-1.10); GLUCOSE 110 MG/DL (70-104); POTASSIUM 3.8 MMOL/L (3.5-5.1); SODIUM 142 MMOL/L (135-145); TOTAL CARBON DIOXIDE 22.5 MMOL/L (24-32); eGFR 55 ML/MIN
[2021-06-18 13:12] LABS: PARTIAL THROMBOPLASTIN TIME 28 SECONDS (22-32)
[2021-06-19] VITALS (11 sets, daily range): BP systolic 117–180; BP diastolic 50–85
[~2021-06-19] VITALS: Ht 167.6 cm; Wt 78.1 kg
[2021-06-19] MEDS ORDERED: DOCU-342 PO (06:31)
[2021-06-19] MEDS ORDERED: LISI-790 PO (06:31)
[2021-06-19] MEDS ORDERED: ATOR20TA66 PO (06:31)
[2021-06-19] MEDS ORDERED: APIX5TAB3 PO (06:31)
[2021-06-19] MEDS ORDERED: MULT-1085 PO (06:32)
[2021-06-19] MEDS ORDERED: acetylcysteine 200 MG/ml 4ml vial PO SCH (06:38)
[2021-06-19] MEDS ORDERED: diphenhydrAMINE 25mg capsule PO PRN (06:40)
[2021-06-19] MEDS ORDERED: LORazepam 0.5 MG tablet PO PRN (06:40)
[2021-06-19] MEDS ORDERED: sodium bicarbonate (8.4%) inj. 150 ML in dextrose 5%-water 1,000 ML IV ONE ×2 (06:40→11:05)
[2021-06-19] MEDS ORDERED: LIDOcaine/PRILOcaine 5gm cream TP ONE (06:40)
[2021-06-19] MEDS ORDERED: normal saline 1,000 ML IV SCH (06:40)
[2021-06-19] MEDS ORDERED: nitroGLYCERIN-Tridil 50MG/D5W 250 ML IV ONE (07:30)
[2021-06-19] MEDS ORDERED: verapamil 2.5 mg/ml inj IV ONE (07:30)
[2021-06-19] MEDS ORDERED: LIDOcaine 1% (10mg/ml)w/preservative injection 20ml MDV ONE (07:31)
[2021-06-19] MEDS ORDERED: heparin 1,000unit/ml 10ml vial 10 ML ONE ×3 (07:31→09:43)
[2021-06-19] MEDS ORDERED: midazolam 1 mg/ML 2ml injection ONE (07:31)
[2021-06-19] MEDS ORDERED: fentaNYL/PF 50MCG/1 ML 2ML syringe ONE (07:31)
[2021-06-19] MEDS ORDERED: iohexol 350MG/ML 100ml bottle IV ONE ×3 (07:31→08:59)
[2021-06-19] MEDS ORDERED: iohexol 350 MG/ML 50ML vial IV ONE (07:31)
[2021-06-19] MEDS ORDERED: heparin 25,000 UNIT/250ml bag 250 ML IV ONE (08:59)
[2021-06-19] MEDS ORDERED: clopidogrel 300mg tablet ONE (09:27)
[2021-06-19] MEDS ORDERED: aspirin 81mg tab.chew PO ONE (10:55)
[2021-06-19] MEDS ORDERED: HYDROcodone/acetaminophen 10/325mg tab PO PRN ×2 (10:55)
[2021-06-19] MEDS ORDERED: OXAZEpam 15mg capsule PO PRN (10:55)
[2021-06-19 11:35] LABS: ISTAT HGB ART 13.9 g/dl (14.0-18.0); ISTAT Hct ART 41 %PCV (42-52); ISTAT O2 SATURATION ARTERIAL 85 % (95-98); ISTAT SOURCE ART
[2021-06-19 15:23] LABS: ISTAT Hct MIX 41 %PCV (42-52); ISTAT O2 SATURATION MIX VENOUS 62 % (60-80); ISTAT SOURCE VEN
--- NOTE | 2021-06-19 18:26 | NUR ---
Second call to Dr Davies re possible admission, pt high risk for re bleed at groin site. Forgetful and impulsive. Lives alone and RN concerned for his need for continued monitoring of the site.
--- NOTE | 2021-06-19 20:10 | NUR ---
patient discharged home after being seen by Dr Ordoñez. Patient adamant that he would like to be discharged home. Pressure dressing intact and no change in the hematoma since the femstop went on and after it was removed. Patients brother in room and meds discussed with them, Dr Ordoñez and RN present. States understanding of new prescriptions, and will start them in the am tomorrow morning. Brother states he will be up all night checking on him. Patient to lay down flat when he gets home to sleep. States understanding of dc instructions.
[2021-06-20] MEDS ORDERED: clopidogrel 75mg tablet PO SCH (08:00)
[2021-06-20] MEDS ORDERED: aspirin 325mg tablet PO ONE (08:00)
== END 2021-06-19 20:10 | disposition home or self-care (01) ==
LOC: SSTAY O 06:02
PROVIDERS: ATTEND Internal Medicine Cardiovascular Disease
DX: R94.39 Abnormal result of other cardiovascular function study (principal); I25.810 Atherosclerosis of coronary artery bypass graft(s) without angina pectoris; I25.82 Chronic total occlusion of coronary artery; E78.5 Hyperlipidemia, unspecified; J45.909 Unspecified asthma, uncomplicated; I42.9 Cardiomyopathy, unspecified; E11.9 Type 2 diabetes mellitus without complications; N40.0 Benign prostatic hyperplasia without lower urinary tract symptoms; I11.0 Hypertensive heart disease with heart failure; I50.22 Chronic systolic (congestive) heart failure; F32.9 Major depressive disorder, single episode, unspecified; F03.90 Unspecified dementia, unspecified severity, without behavioral disturbance, psychotic disturbance, mood disturbance, and anxiety; F17.210 Nicotine dependence, cigarettes, uncomplicated; Z95.5 Presence of coronary angioplasty implant and graft; Z86.73 Personal history of transient ischemic attack (TIA), and cerebral infarction without residual deficits; Z79.01 Long term (current) use of anticoagulants; Z79.82 Long term (current) use of aspirin; Z79.899 Other long term (current) drug therapy; Z98.890 Other specified postprocedural states; Z88.5 Allergy status to narcotic agent; Z83.3 Family history of diabetes mellitus
CPT/HCPCS: 36415; 76937; 80048; 82803; 85014; 85025; 85347; 85610; 85730; 93005; 93461; 99152; 99153; C1725; C1751; C1769; C1874; C1894; C9600; C9607; J1644; J2001; J2250; J3010; J7030; J7040; Q0163; Q9967; A4620; A6258; J3490

== ENCOUNTER → 2024-11-11 | Emergency (ER) | payer MEDICARE, MEDICAID ==
[~2024-11-11] VITALS: Ht 167.6 cm; Wt 96.4 kg
[~2024-11-11] MED LIST changes: +APIX5TAB3 PO; +ATOR20TA66 PO; +DOCU-391 PO; -LEVO500T89 PO; +LISI5TAB22 PO; -MAGN400C PO; +MULT-1085 PO
[2024-11-11 17:34] VITALS: BP 191/75; PULSE 63; RESP 16; TEMP 98.6; O2SAT 97
[2024-11-11 18:12] LABS: BASOPHILS % (AUTO) 0.5 % (0-1); EOSINOPHILS # (AUTO) 0.1 X10'3 (0-0.9); HEMOGLOBIN 15.4 g/dl (14.0-17.9); LYMPHOCYTES # (AUTO) 1.3 X10'3 (1.1-4.8); LYMPHOCYTES % (AUTO) 21.8 % (21-51); MEAN CORPUSCULAR HGB CONC 33.6 g/dL (33.0-36.5); MEAN CORPUSCULAR VOLUME 92.2 FL (78-98); MEAN PLATELET VOLUME 8.7 FL (7.4-10.4); MONOCYTES # (AUTO) 0.5 X10'3 (0-0.9); MONOCYTES % (AUTO) 8.6 % (2-12); NEUTROPHILS # (AUTO) 4.1 X10'3 (1.8-7.7); NEUTROPHILS % (AUTO) 67.1 % (42-75); PLATELET COUNT 187 X10'3 (140-440); RED BLOOD COUNT 4.99 X10'6 (4.70-6.10); RED CELL DISTRIBUTION WIDTH 14.3 % (11.5-14.5); WHITE BLOOD COUNT 6.2 X10'3 (4.5-11.0)
[2024-11-11 18:24] LABS: ALANINE AMINOTRANSFERASE 24 U/L (12-78); ALBUMIN 3.9 G/DL (3.4-5.0); ALKALINE PHOSPHATASE 89 IU/L (46-116); ANION GAP 9 (8-16); ASPARTATE AMINO TRANSFERASE 24 U/L (10-37); BILIRUBIN,TOTAL 0.7 MG/DL (0.1-1.0); BLOOD UREA NITROGEN 27 MG/DL (7-18); BUN/CREATININE RATIO 15.1 (10.0-20.0); CALCIUM 9.1 MG/DL (8.5-10.1); CHLORIDE 105 MMOL/L (99-107); CREATININE 1.79 MG/DL (0.60-1.10); GLUCOSE 145 MG/DL (70-104); POTASSIUM 4.3 MMOL/L (3.5-5.1); SODIUM 138 MMOL/L (135-145); TOTAL CARBON DIOXIDE 24.2 MMOL/L (24-32); TOTAL PROTEIN 7.7 G/DL (6.4-8.2); eCRCL 28 ML/MIN; eGFR 36 ML/MIN
[2024-11-11 18:31] LABS: PRO BRAIN NATRIURETIC PEPTIDE 1381 PG/ML (0-450)
== END | disposition left against medical advice (07) ==
LOC: CANPREER → ER 17:23
DX: R07.89 Other chest pain (principal); Z53.21 Procedure and treatment not carried out due to patient leaving prior to being seen by health care provider; Z95.1 Presence of aortocoronary bypass graft
CPT/HCPCS: 36415; 71045; 80053; 83880; 84484; 85025; 93005